=== PATIENT | female | born 1970 | race Caucasian/White ===

== ENCOUNTER → 2018-10-03 | Outpatient (CLI) | payer OTHER, BC ==
--- NOTE | 2018-10-03 12:40 | KCIC ---
PQRS Compliance statement: One or more of the following individualized dose reduction techniques were utilized for this examination: 1. Automated exposure control. 2. Adjustment of the mA and/or kV according to patient size. 3. Use of iterative reconstruction technique. Indication:Chronic sinusitis. Sinus headache, pressure,, drainage. TECHNIQUE: CT of the maxillofacial bones without IV contrast multiplanar reformats. COMPARISON: None FINDINGS: The paranasal sinuses and mastoid air cells are well-aerated. Small polyps or mucous retention cyst is seen in the posterior aspect of the left maxillary sinus measuring 8 mm. The nasal septum is midline. No bony erosions are seen. The lenses, globes, extraocular muscles and intraorbital fat are within normal limits. Bilateral temporomandibular joints are within normal limits. IMPRESSION: No evidence of acute or chronic sinus disease. Electronically signed by: Trent Hopper DO (10/03/2018 12:37 PM) [facility]
== END | disposition home or self-care (01) ==
LOC: KCIC CT 09:32
PROVIDERS: ATTEND Family Medicine
DX: J32.9 Chronic sinusitis, unspecified (principal)
CPT/HCPCS: 70486

== ENCOUNTER → 2020-04-04 | Outpatient (CLI) | payer OTHER, BC ==
--- NOTE | 2020-04-04 20:12 | KCIC ---
Bilateral digital screening mammograms with 3-D tomosynthesis: Reason for examination: Routine screening. Comparison is made to previous study dated 08/20/2016. Bilateral mammograms in CC and oblique projections were obtained with 2-D imaging and 3-D tomosynthesis imaging on a Siemens Inspiration unit and reviewed on the workstation. Interpretation was made with the benefit of CAD. The skin and nipples show no abnormalities. No abnormal axillary lymph nodes are seen. Bilateral breast implants remain present. The breast parenchyma is heterogeneously dense. (Breast density: Category C.) There are no dominant masses, suspicious calcifications or architectural distortion. Impression: No evidence of malignancy. Recommend routine screening. Your patient's mammogram demonstrates that she has dense breast tissue (breast density category C or D), which could hide abnormalities, and if she has other risk factors for breast cancer that have been identified, she might benefit from supplemental screening tests that may be suggested by you as her ordering physician. Dense breast tissue, in and of itself, is a relatively common condition. Therefore, this information is not provided to cause undue concern, but rather to raise your awareness and to promote discussion with your patient regarding the presence of other risk factors, in addition to dense breast tissue. Your patient's mammography results will be sent to her. BI-RAD Category 1: Negative. "Our facility is accredited by the [employer] Mammography Program." This patient's information has been entered into a reminder system for the patient to be notified with the results of her examination and a target date for the next mammogram. Electronically signed by: Mia Bentley MD (04/04/2020 8:09 PM) [id number]
== END | disposition home or self-care (01) ==
LOC: KCIC MAMMO 15:44
PROVIDERS: ATTEND Obstetrics & Gynecology
DX: Z12.31 Encounter for screening mammogram for malignant neoplasm of breast (principal)
CPT/HCPCS: 77063; 77067

== ENCOUNTER → 2020-08-30 | Outpatient (CLI) | payer OTHER, BC ==
[~2020-08-30] MED LIST: ACYC200C PO; CETI10TA74 PO; HYDR1LIQ6 PO; IBUP-1060 PO; MULT-245 PO; TRAM100T36 PO
== END ==
LOC: LAB 10:14
PROVIDERS: ATTEND Podiatrist Foot & Ankle Surgery
DX: Z01.812 Encounter for preprocedural laboratory examination (principal); Z20.822 Contact with and (suspected) exposure to COVID-19
CPT/HCPCS: U0003

== ENCOUNTER 2020-09-01 09:54 | Day surgery (SDC) | payer OTHER, BC ==
[~2020-09-01] VITALS: Ht 160 cm; Wt 61.7 kg
[~2020-09-01 09:54] MED LIST changes: -ACYC200C PO; -CETI10TA74 PO; -HYDR1LIQ6 PO; +HYDROmorphone 2 MG/ML VIAL IVP PRN; -IBUP-1060 PO; +IV RINGERS,LACTATED 1000ML 1,000 ML IV SCH; +MORPHINE SULFATE 2 MG/ML VIAL. IVP PRN; -MULT-245 PO; +PROCHLORPERAZINE 10 MG/2 ML VIAL. IVP PRN; -TRAM100T36 PO; +ceFAZolin SODIUM IV Push 1 GM VIAL. IVP PRN; +fentaNYL PF VIAL 100 MCG/2 ML VIAL IVP PRN
[2020-09-01] MEDS ORDERED: ACYC200C PO (10:12)
[2020-09-01] MEDS ORDERED: CETI10TA74 PO (10:12)
[2020-09-01] MEDS ORDERED: MULT-245 PO (10:12)
[2020-09-01 10:41] LABS: BASO # 0.1 x10^3/uL (0.0-0.2); BASO % 1 % (0-3); EOS # 0.1 x10^3/uL (0.0-0.7); EOS % 1 % (0-3); HEMOGLOBIN 12.2 g/dL (12.0-15.5); LYMPH # 2.3 x10^3/uL (1.0-4.8); LYMPH % 30 % (24-48); MEAN CORPUSCULAR HEMOGLOBIN 26 pg (25-35); MEAN CORPUSCULAR HGB CONC 33 g/dL (31-37); MEAN CORPUSCULAR VOLUME 80 fL (79-100); MONO # 0.5 x10^3/uL (0.0-1.1); MONO % 6 % (0-9); NEUT # 4.8 x10^3/uL (1.8-7.7); NEUT % 62 % (31-73); PLATELET COUNT 274 x10^3/uL (140-400); RED BLOOD COUNT 4.66 x10^6/uL (3.50-5.40); RED CELL DISTRIBUTION WIDTH 14.2 % (11.5-14.5); WHITE BLOOD COUNT 7.7 x10^3/uL (4.0-11.0)
--- NOTE | 2020-09-01 10:46 | PDOC1 ---
History and Physical Date of Admission Date of Admission DATE: 09/01/20 TIME: 10:46 Identification/Chief Complaint Chief Complaint Left foot pain, bunion Source Source: Patient History of Present Illness History of Present Illness Ms. Welch is a 50yo F w/ PMHx seasonal allergies who presents with severe left foot pain due to bunion. Previously had surgery planned for 06/30/2021 delayed due to the global pandemic. Feeling otherwise well. No complaints. No recent sick contacts, negative COVID 19 08/30/2020, negative urine HCG. Labs reviewed within normal limits. No cardiac history. No problems with anesthesia or history of blood transfusion or blood clots. bedside. 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 Past Medical History Cardiovascular: No pertinent hx Pulmonary: No pertinent hx GI: No pertinent hx Grav: 1 Para: 1 Past Surgical History Past Surgical History: Appendectomy (With right fallopian tube removal), Other (Breast implants) Family History Family History: Allergy (severe) Social History Smoke: No ALCOHOL: none Drugs: None Current Medications Current Medications Current Medications Cefazolin Sodium (Ancef) 1 gm 1X PREOP PRN IVP PRIOR TO PROCEDURE; Start 09/01/20 at 06:00 Fentanyl Citrate (Fentanyl 2ml Vial) 25 mcg PRN Q5MIN PRN IVP MILD PAIN 1-3; Start 09/01/20 at 06:45; Stop 09/02/20 at 06:44 Fentanyl Citrate (Fentanyl 2ml Vial) 50 mcg PRN Q5MIN PRN IVP MODERATE PAIN 4- 6; Start 09/01/20 at 06:45; Stop 09/02/20 at 06:44 Morphine Sulfate (Morphine Sulfate) 1 mg PRN Q10MIN PRN IVP SEVERE PAIN 7-10; Start 09/01/20 at 06:45; Stop 09/02/20 at 06:44 Ringer's Solution 1,000 ml @ 30 mls/hr Q24H IV Last administered on 09/01/20at 10:26; Start 09/01/20 at 06:45; Stop 09/01/20 at 18:44 Hydromorphone HCl (Dilaudid) 0.5 mg PRN Q10MIN PRN IVP SEVERE PAIN 7-10, 2nd CHOICE; Start 09/01/20 at 06:45; Stop 09/02/20 at 06:44 Prochlorperazine Edisylate (Compazine) 5 mg PACU PRN PRN IVP NAUSEA, MRX1; Start 09/01/20 at 06:45; Stop 09/02/20 at 06:44 Active Scripts Active Reported Acyclovir 200 Mg Capsule 1 Cap PO 5XDAY Multi Vitamin Daily (Multivitamin) 1 Each Tablet 1 Tab PO DAILY 30 Days Zyrtec (Cetirizine Hcl) 10 Mg Tablet 1 Tab PO DAILY Allergies Allergies: Coded Allergies: No Known Drug Allergies (Unverified , 09/01/20) ROS General: No: Chills, Night Sweats, Fatigue, Malaise, Appetite, Other PSYCHOLOGICAL ROS: No: Anxiety, Behavioral Disorder, Concentration difficultie, Decreased libido, Depression, Disorientation, Hallucinations, Hostility, Irritablity, Memory difficulties, Mood Swings, Obsessive thoughts, Physical abuse, Sexual abuse, Sleep disturbances, Suicidal ideation, Other Eyes: No Blurry vision, No Decreased vision, No Double vision, No Dry eyes, No Excessive tearing, No Eye Pain, No Itchy Eyes, No Loss of vision, No Photophobia, No Scotomata, No Uses contacts, No Uses glasses, No Other HEENT: No: Heacaches, Visual Changes, Hearing change, Nasal congestion, Nasal discharge, Oral lesions, Sinus pain, Sore Throat, Epistaxis, Sneezing, Snoring, Tinnitus, Vertigo, Vocal changes, Other ALLERGY AND IMMUNOLOGY: No: Hives, Insect Bite Sensitivity, Itchy/Watery Eyes, Nasal Congestion, Post Nasal Drip, Seasonal Allergies, Other Hematological and Lymphatic: No: Bleeding Problems, Blood Clots, Blood Transfusions, Brusing, Night Sweats, Pallor, Swollen Lymph Nodes, Other ENDOCRINE: No: Breast Changes, Galactorrhea, Hair Pattern Changes, Hot Flashes, Malaise/lethargy, Mood Swings, Palpitations, Polydipsia/polyuria, Skin Changes, Temperature Intolerance, Unexpected Weight Changes, Other Breast: No New/Changing Breast Lumps, No Nipple changes, No Nipple discharge, No Other Respiratory: No: Cough, Hemoptysis, Orthopnea, Pleuritic Pain, Shortness of breath, SOB with excertion, Sputum Changes, Stridor, Tachypnea, Wheezing, Other Cardiovascular: No Chest Pain, No Palpitations, No Orthopnea, No Paroxysmal Noc. Dyspnea, No Edema, No Lt Headedness, No Other Gastrointestinal: No Nausea, No Vomiting, No Abdominal Pain, No Diarrhea, No Constipation, No Melena, No Hematochezia, No Other Genitourinary: No Dysuria, No Frequency, No Incontinence, No Hematuria, No Retention, No Discharge, No Urgency, No Pain, No Flank Pain, No Other, No , No , No , No , No , No , No Musculoskeletal: No Gait Disturbance, No Joint Pain, No Joint Stiffness, No Joint Swelling, No Muscle Pain, No Muscular Weakness, No Pain In:, No Swelling In:, No Other Neurological: Yes Gait Disturbance; No Behavorial Changes, No Bowel/Bladder ControlChng, No Confusion, No Dizziness, No Headaches, No Impaired Coord/balance, No Memory Loss, No Numbness/Tingling, No Seizures, No Speech Problems, No Tremors, No Visual Changes, No Weakness, No Other Skin: No Dry Skin, No Eczema, No Hair Changes, No Lumps, No Mole Changes, No Mottling, No Nail Changes, No Pruritus, No Rash, No Skin Lesion Changes, No Other, No Acne Physical Exam General: Alert, Oriented X3, Cooperative, No acute distress HEENT: Atraumatic, PERRLA, EOMI, Mucous membr. moist/pink Lungs: Clear to auscultation, Normal air movement Heart: S1S2, RRR, no thrills, no rubs, no gallops, no murmurs Abdomen: Normal bowel sounds, Soft, No tenderness, No hepatosplenomegaly, No masses Extremities: No clubbing, No cyanosis, No edema, Normal pulses, No tenderness/swelling Skin: No rashes, No breakdown, No significant lesion Neuro: Normal speech, Strength at 5/5 X4 ext, Normal tone, Sensation intact, Cranial nerves 3-12 NL, Reflexes 2+ Psych/Mental Status: Mental status NL, Mood NL Vitals Vitals Vital Signs Date Time Temp Pulse Resp B/P (MAP) Pulse Ox O2 Delivery O2 Flow Rate FiO2 09/01/20 10:22 98.8 92 18 99 98.8 09/01/20 10:16 128/75 Labs Labs Laboratory Tests Test 09/01/20 10:17 Bedside Urine HCG, Qualitative Hcg negative (Negative) Laboratory Tests Test 09/01/20 10:17 Bedside Urine HCG, Qualitative Hcg negative (Negative) VTE Prophylaxis Ordered VTE Prophylaxis Devices: No VTE Pharmacological Prophylaxi: No Assessment/Plan Assessment/Plan A/P: Left foot pain - bunionectomy scheduled today, no further testing required prior to planned surgery Seasonal allergies - cont H1 sung FEN - NPO PPX - low risk, ambulatory FULL CODE Dispo - ok for outpatient surgery and d/c home after Call for further questions: Justifications for Admission Other Justification TAE MAJOR MD Sep 01, 2020 10:46
[2020-09-01 10:48] LABS: CALCIUM 9.2 mg/dL (8.5-10.1); CREATININE 0.8 mg/dL (0.6-1.0); GFR 76.2
[2020-09-01 10:54] LABS: ALBUMIN 3.7 g/dL (3.4-5.0); TOTAL BILIRUBIN 0.4 mg/dL (0.2-1.0); TOTAL PROTEIN 7.4 g/dL (6.4-8.2)
[2020-09-01] MEDS ORDERED: LIDOCAINE 1% Multi-Dose 20 ML VIAL. ONE (11:47)
[2020-09-01] MEDS ORDERED: BUPIVACAINE MPF 0.5% 30 ML VIAL. ONE (11:48)
[2020-09-01] MEDS ORDERED: DEXAMETHASONE SOD PHOS 4 MG/ML VIAL ONE ×3 (11:49→12:56)
[2020-09-01] MEDS ORDERED: POVIDONE-IODINE 10% TOPICAL OINTMENT 28GM TUBE. TP ONE (11:49)
[2020-09-01] MEDS ORDERED: PROPOFOL 10 MG/ML (20ML) VIAL. IV ONE (12:56)
[2020-09-01] MEDS ORDERED: SEVOFLURANE 61 TO 120 MINUTES. IH ONE (12:56)
[2020-09-01] MEDS ORDERED: LIDOCAINE 2% PF 5 ML VIAL. ONE (12:56)
[2020-09-01] MEDS ORDERED: ONDANSETRON PF 4 MG/2 ML VIAL. ONE (12:56)
[2020-09-01] MEDS ORDERED: KETOROLAC 30 MG/ML VIAL. ONE (12:58)
--- NOTE | 2020-09-01 13:46 | PDOC4 ---
OPERATIVE NOTE: Surgeon: Helen Pre op diagnosis: hallux valgus left post op diagnosis: same Procedure: grey bunionectomy left foot anesthesia: LMA with local iglesias block hemostasis: 59 minutes left ankle tourniquet at 250mmHg EBL 1mL Materials: 3-0 IN 2 Bones partially threaded headed cannulated screw 26mm Intraoperative findings: No osteochondral defect of 1st metatarsal phalangeal joint. consistent with diagnosis. Patient tolerated both anesthesia and procedure well. Transferred to PACU with VSS and VSI to left foot CRISTOFER MOODY DPM Sep 01, 2020 13:46
[2020-09-01] MEDS ORDERED: HYDR1LIQ6 PO (13:51)
[2020-09-01] MEDS ORDERED: TRAM100T36 PO (13:52)
[2020-09-01] MEDS ORDERED: IBUP-1060 PO (13:53)
[2020-09-01] MEDS ORDERED: traMADol 50 MG TABLET ONE (14:02)
--- NOTE | 2020-09-01 14:12 | RAD ---
PROCEDURE: XR FOOT_LEFT 3 VIEWS STUDY DATE: 09/01/2020 CLINICAL INDICATION / HISTORY: Reason: Status post bunionectomy left foot / Spl. Instructions: in PAC U / History: . TECHNIQUE: AP, lateral and oblique views of the left foot. COMPARISON: None FINDINGS: No fracture or dislocation is identified. Postsurgical changes from osteotomy of the distal first metatarsal is present with a fixation screw through the surgical defect. The bone density is n ormal. The joint space widths are maintained, and there are no erosions to suggest an inflammatory ar thropathy. No soft tissue abnormality is seen. There is a dressing over the surgical wound in the med ial aspect of the left forefoot. IMPRESSION: Recent postoperative changes from left first metatarsal bunionectomy with anatomic alignm ent. No acute osseous abnormality shown. Electronically signed by: Latosha Ellison MD (09/01/2020 2:10 PM) [id number]
[2020-09-01] MEDS ORDERED: traMADol 50 MG TABLET PO ONE (14:15)
[2020-09-01 14:35] VITALS: BP 130/75
--- NOTE | 2020-09-01 15:05 | OP ---
DATE OF SURGERY: 09/01/2020 PREOPERATIVE DIAGNOSIS: Hallux abductovalgus. POSTOPERATIVE DIAGNOSIS: Hallux abductovalgus of the left foot. PROCEDURE: Vladimir bunionectomy, left foot. SURGEON: Dat Cervantes DPM ANESTHESIA: LMA with local Rankin block. HEMOSTASIS: 59 minutes left ankle tourniquet at 250 mmHg. INDICATIONS: The patient is a 50-year-old female with a chief complaint of pain to the bunion site of the left foot. She has failed conservative treatment of wider shoes, accommodative padding, NSAIDs, inserts, ice, rest and radiographs showed an increase in the first intermetatarsal angle and a laterally deviated sesamoids. Discussed with the patient her risks and possible complications to include delayed or nonhealing, need for further surgery. Recurrence, infection, numbness, tingling, damage to blood vessels, over correction, under correction, shortened toe, floppy toe, flail toe, stiff toe, recurrence of the deformity, blood clot to leg, blood clots to the lung, chronic regional pain syndrome. All questions were answered. The patient signed consent and put in chart. No guarantees made. DESCRIPTION OF PROCEDURE: The patient was transported to the operating room via a cart and placed on the operating table in supine position. She was given 1 gram of IV Ancef preoperatively. The anesthesia administered LMA and a Rankin block was administered to the left foot consisting of a 1:1 mixture of 1% lidocaine plain and 0.5% Marcaine plain, 17 mL total. A well-padded tourniquet was placed over the left ankle and the left foot was then prepped and draped in the usual aseptic manner. Esmarch bandage was used to exsanguinate the left foot and the left ankle tourniquet was inflated to 250 mmHg. A timeout was taken to verify the patient's surgery, and limb to be performed. The tourniquet was inflated to 250 mmHg. Attention was directed to the first ray where a 5 cm incision was made just medial to the extensor hallucis longus tendon. This was deepened to the level of joint capsule, small vessels. The neurovascular bundle was safely reflected from the surgical site and a linear incision was made through the joint capsule and dissected the joint capsule from the distal one-third of the first metatarsal as well as the base of the proximal phalanx. Note that there was no osteochondral defects to the metatarsophalangeal joint. There was some cartilage thinning at the dorsal aspect of the first metatarsal head. Sagittal saw was then used to resect the medial eminence and a lateral release was performed at this time. Next, a Chevron osteotomy was made to the first metatarsal and the capital fragment was ____ 2 mm and solid fixation was achieved with a 3-0 partially threaded cannulated screw 26 mm in the bones. A C-arm fluoroscopy was utilized to verify the placement and alignment, which was noted satisfactory and the guidewire and the temporary K-wire was then removed at this time and final x-rays were taken to verify placement. The wound was then copiously irrigated with sterile saline. The joint capsule was reapproximated with 2-0 Vicryl and the skin was reapproximated with 4-0 nylon. Postop injection was given of 10 mL of 0.5% Marcaine plain and then 4 mg of Decadron. The wound was then dressed with Betadine ointment, Adaptic gauze, 4 x 4, Conform bandage and an Angel bandage. The patient is to be minimal weightbearing, bathroom privileges only in a Cam boot. Postoperative instructions are in the chart. Tourniquet was deflated after 59 minutes and good perfusion was noted to all digits of the left foot. DAT CERVANTES DPM DR: Naya JOB#: [id number] / [id number]
== END 2020-09-01 14:49 | disposition home or self-care (01) ==
LOC: SURG 09:54
PROVIDERS: ATTEND Podiatrist Foot & Ankle Surgery
DX: M20.12 Hallux valgus (acquired), left foot (principal); Z79.899 Other long term (current) drug therapy; Z98.890 Other specified postprocedural states
CPT/HCPCS: 28292; 36415; 73630; 80053; 81025; 85025; A4213; A4930; A6253; A6402; A6449; C1713; C1769; J0690; J1100; J1885; J2405; J2704; J3490; A4657; A6443

== ENCOUNTER → 2021-06-01 | Outpatient (CLI) | payer OTHER, BC ==
[~2021-06-01] MED LIST changes: +ACYC200C84 PO; +CETI10TA74 PO; +HYDR1LIQ6 PO; -HYDROmorphone 2 MG/ML VIAL IVP PRN; +IBUP-1060 PO; -IV RINGERS,LACTATED 1000ML 1,000 ML IV SCH; -MORPHINE SULFATE 2 MG/ML VIAL. IVP PRN; +MULT-245 PO; -PROCHLORPERAZINE 10 MG/2 ML VIAL. IVP PRN; +TRAM100T36 PO; -ceFAZolin SODIUM IV Push 1 GM VIAL. IVP PRN; -fentaNYL PF VIAL 100 MCG/2 ML VIAL IVP PRN
--- NOTE | 2021-06-01 16:57 | KCIC ---
Bilateral digital screening mammograms: Reason for examination: Routine screening. Comparison is made to previous studies dated 04/04/2020 and 08/20/2016. Interpretation was made with the benefit of CAD. The skin and nipples show no abnormalities. No abnormal axillary lymph nodes are seen. Breast implant s remain present. The breast parenchyma is heterogeneously dense. (Breast density: Category C.) There are no dominant masses, suspicious calcifications or architectural distortion. Impression: No evidence of malignancy. Recommend routine screening. Your patient's mammogram demonstrates that she has dense breast tissue (breast density category C or D), which could hide abnormalities, and if she has other risk factors for breast cancer that have bee n identified, she might benefit from supplemental screening tests that may be suggested by you as her ordering physician. Dense breast tissue, in and of itself, is a relatively common condition. Therefo re, this information is not provided to cause undue concern, but rather to raise your awareness and t o promote discussion with your patient regarding the presence of other risk factors, in addition to d ense breast tissue. Your patient's mammography results will be sent to her. BI-RAD Category 1: Negative. "Our facility is accredited by the [employer] Mammography [employer]." This patient's information has been entered into a reminder system for the patient to be notified wit h the results of her examination and a target date for the next mammogram. Electronically signed by: Mia Bentley MD (06/01/2021 4:55 PM) [email or web address]
== END ==
LOC: KCIC MAMMO 15:46
PROVIDERS: ATTEND Obstetrics & Gynecology
DX: Z12.31 Encounter for screening mammogram for malignant neoplasm of breast (principal)
CPT/HCPCS: 77067